=== PATIENT | male | born 1945 | race Caucasian/White ===

== ENCOUNTER 2024-11-25 14:53 | Outpatient (CLI) | payer OTHER ==
--- NOTE | 2024-11-25 15:58 | RADIOLOGY REPORT ---
MR lumbar spine HISTORY: INTERVERTEBRAL DISC DISORDERS W RADICULOPATHY, LUM TECHNIQUE: MR was performed with a surface coil at 1.5 T magnet. Sagittal, axial and coronal T1 and T 2-weighted images were obtained. FINDINGS: Postsurgical changes are present at L3 through S1 vertebral bodies are normal in height and signal intensity. At L1-2 loss of disc height and signal intensity. No disc herniation or nerve root compression At L2-3 loss of disc height and signal intensity. Foraminal narrowing due to shortened pedicles and f acet joint hypertrophy L3-4 narrowing of the right neural foramen by bulging disc with effacement of the exiting right L3 ne rve root L4-5 no significant narrowing of the central canal and neural foramina L5-S1 no significant narrowing of the central canal . Narrowing of the peripheral right neural forame n by bulging disc which May efface the exiting right L5 nerve Cord ends at T12-L1 and is normal in appearance IMPRESSION: 1. At L3-4 and at L5-S1 there are rightward disc bulges which May efface the exiting right-sided nerv e roots 2. Degenerative changes and postsurgical changes are seen in the lower lumbar spine
== END 2024-11-25 23:59 | disposition home or self-care (01) ==
LOC: MRI02 14:53
PROVIDERS: ATTEND Anesthesiology
DX: M51.16 Intervertebral disc disorders with radiculopathy, lumbar region (principal); M47.26 Other spondylosis with radiculopathy, lumbar region; M48.07 Spinal stenosis, lumbosacral region; M53.3 Sacrococcygeal disorders, not elsewhere classified; Z98.890 Other specified postprocedural states
CPT/HCPCS: 72148